=== PATIENT | female | born 1995 | race Two or more races ===

== ENCOUNTER 2020-05-01 20:26 | Emergency (ER) | payer OTHER ==
[~2020-05-01] VITALS: Ht 149.9 cm; Wt 47.6 kg
[2020-05-02] MEDS ORDERED: MEDROLPACK PO (01:23)
== END 2020-05-02 01:46 | disposition home or self-care (01) ==
LOC: ER 20:26
DX: R20.0 Anesthesia of skin (principal); Z03.818 Encounter for observation for suspected exposure to other biological agents ruled out